=== PATIENT | female | born 1980 | race African-American/Black ===

== ENCOUNTER 2019-02-01 15:57 | Emergency (ER) | payer BC | END 2019-02-01 16:37 | disposition home or self-care (01) | LOC: ERS 15:57 | DX: S09.90XA Unspecified injury of head, initial encounter (principal); V89.2XXA Person injured in unspecified motor-vehicle accident, traffic, initial encounter | CPT/HCPCS: 99283 ==

== ENCOUNTER 2023-07-04 07:45 | Outpatient (CLI) | payer BC | END 2023-07-04 07:46 | disposition home or self-care (01) | LOC: NM 07:45 | PROVIDERS: ATTEND Internal Medicine Endocrinology, Diabetes & Metabolism | DX: E05.80 Other thyrotoxicosis without thyrotoxic crisis or storm (principal) | CPT/HCPCS: 78014; A9516 ==